=== PATIENT | male | born 1980 | race Caucasian/White ===

== ENCOUNTER 2022-01-20 23:42 | Emergency (ER) | payer MEDICAID ==
[2022-01-21 00:02] LABS: HEMOGLOBIN 9.4 gm/dl (14.0-17.5); RED BLOOD COUNT 3.06 M/UL (4.20-5.50); WHITE BLOOD COUNT 15.9 K/UL (4.5-11.0)
[2022-01-21 00:40] LABS: BUN/CREATININE RATIO 17 (0-10)
== END 2022-01-21 03:20 | disposition short-term general hospital (02) ==
LOC: ER1 23:42
DX: J18.9 Pneumonia, unspecified organism (principal); M79.81 Nontraumatic hematoma of soft tissue; F17.210 Nicotine dependence, cigarettes, uncomplicated
CPT/HCPCS: 71045; 80053; 81001; 82550; 82553; 83605; 84484; 85025; 87040; 87086; 93005; 96374; 99285; J0696